=== PATIENT | male | born 1985 | race Caucasian/White ===

== ENCOUNTER 2025-02-05 07:36 | Emergency (ER) | payer SELFPAY ==
[2025-02-05] VITALS (7 sets, daily range): BP systolic 105–124; BP diastolic 54–72; PULSE 65–86; RESP 12–28; TEMP 36.9–37.1; O2SAT 97–100; BMI 12.1
--- NOTE | 2025-02-05 07:41 | CT_ITS ---
PROCEDURE: SPINE LUMBAR WITHOUT CONTRAST 02/05/2025 REASON FOR EXAM: TRAUMA TECHNIQUE: SPINE LUMBAR WITHOUT CONTRAST Coronal and Sagittal reconstruction series were provided. One or more dose reduction techniques were used (e.g., Automated exposure control, adjustment of the mA and/or kV according to patient size, use of iterative reconstruction technique. COMPARISON: Same day CT abdomen pelvis. RADIATION DOSE SUMMARY: DLP: 400 mGycm FINDINGS: Acute compression and burst type fracture of the L5 vertebral body. No obvious translational, rotational or distraction injury. There is disruption of the posterior ligamentous column given appearance of subtle widening of the interspinous space. There is retropulsion of the fracture fragment into the spinal canal, with approximately 40-50% narrowing of the spinal canal at the L4-5 disc space. There is minimal soft tissue stranding along the posterior lower back. No additional acute fracture or traumatic listhesis. The visualized sacral joints are maintained. See same day CT abdomen pelvis for additional findings. CT/Spine Lumbar without Contrast IMPRESSION: Acute compression and burst type fracture of the L5 vertebral body with retropu lsion as described. Recommend neurosurgical consultation and L-spine MRI to evaluate the spinal cord if clinically indicate d. Reading Location: [id number]
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
[2025-02-05] MEDS: Ondansetron 4 MG/2 ML Vial IV (07:47)
[2025-02-05] MEDS: morphine 8 MG/ML Syringe 6 MG IV ×2 (07:47→08:57)
[2025-02-05 07:59] LABS: Absolute Lymphocyte Count 1.53 X10^3/uL (0.83-4.51); Absolute Neutrophil Count 3.2 X10^3/uL (2.0-7.7); Basophil# 0.04 X10^3/uL; Basophil% 0.7 % (0-1); Eosinophil# 0.11 X10^3/uL; Hematocrit 43.9 % (40-54); Hemoglobin 15.6 g/dL (13.0-16.5); Lymphocyte # 1.53 X10^3/ul (0.83-4.51); Lymphocyte % 28.1 % (19-41); Mean Corp Hgb Conc 35.5 g/dL (32-36); Mean Corpuscular Hgb 29.4 pg (27.0-32.0); Mean Corpuscular Volume 82.7 fL (80-94); Mean Platelet Vol. 9.9 fl (6.2-12.0); Monocyte# 0.54 X10^3/uL; Monocyte% 9.9 % (0-10); NRBC Flagged by Analyzer 0 % (0-5); Neutrophil % 58.7 % (47-70); Platelet Count 234 K/mm3 (150-450); RBC Distribution Width CV 11.8 % (11.6-14.6); RBC Distribution Width SD 35.5 fl (35.1-43.9); Red Blood Count 5.31 M/mm3 (4.6-6.2); White Blood Count 5.5 K/mm3 (4.4-11.0)
--- NOTE | 2025-02-05 08:12 | PCA ---
CALLED [facility] AT [phone] FOR TRAUMA TRANSFER
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
--- NOTE | 2025-02-05 08:39 | ED.RN ---
2028: REPORT CALLED TO [facility] ER NURSE, ADRIANA, AT THIS TIME
[2025-02-05 08:41] LABS: ALB/GLOB Ratio 1.8 RATIO (0.9-2.4); AST(SGOT) 28 U/L (<=37); Alanine Aminotransfer ALT/SGPT 27 U/L (<=46); Albumin, Serum 4.4 g/dL (3.5-5.0); Alkaline Phosphatase 71 U/L (40-129); Anion Gap 13 (5-15); BUN 15 mg/dL (4-19); BUN/Creat Ratio 13.4 RATIO (10-20); Calcium,Total 9.3 mg/dL (7.6-11.0); Chloride 102 mmol/L (98-108); Creatinine, Serum 1.09 mg/dL (0.70-1.20); EST Glomerular Filtration Rate 89 (>60); Globulin 2.5 g/dL (2.2-4.2); Glucose 166 mg/dL (70-99); Potassium 3.5 mmol/L (3.3-5.1); Protein, Total 6.9 g/dL (5.9-8.4); Sodium Level 137 mmol/L (133-145); Total Bilirubin 0.99 mg/dL (0.00-1.30)
--- NOTE | 2025-02-05 09:22 | PCA ---
PHYSICIANS PICKED THE PATIENT AT [phone] FOR [facility]..... LEFT ABOUT 0930
[2025-02-05 14:57] LABS: International Normalized Ratio 1.1; Prothrombin Time (Protime)PT. 14.1 SECONDS (11.7-14.9)
== END 2025-02-05 09:30 | disposition short-term general hospital (02) ==
PROVIDERS: Emergency Provider Emergency Medicine; Visit Provider Emergency Medicine
DX: S32.051A Stable burst fracture of fifth lumbar vertebra, initial encounter for closed fracture (principal); W22.8XXA Striking against or struck by other objects, initial encounter; Y93.89 Activity, other specified; Y92.79 Other farm location as the place of occurrence of the external cause
CPT/HCPCS: 72131; 74177; 80053; 85025; 85610; 96374; 96375; 96376; 99285; Q9967; A4216; J2405

== ENCOUNTER → 2025-03-16 | Outpatient (CLI) | payer OTHER, SELFPAY ==
--- NOTE | 2025-03-16 13:53 | RAD_ITS ---
PROCEDURE: LUMBAR SPINE 2 OR 3 VIEWS 03/16/2025 REASON FOR EXAM: S/P LUMBAR FUSION TECHNIQUE: LUMBAR SPINE 2 OR 3 VIEWS COMPARISON: 02/05/2025 FINDINGS: Status post posterior fusion, L4 through S1. Intact hardware. Compression deformity L5. No significant degeneration. No acute bone or soft tissue pathology. RAD/Lumbar Spine 2 or 3 Views IMPRESSION: Unremarkable postoperative appearance. Reading [facility]
--- NOTE | 2025-03-16 13:53 | RAD_ITS ---
PROCEDURE: LUMBAR SPINE 2 OR 3 VIEWS 03/16/2025 REASON FOR EXAM: S/P LUMBAR FUSION TECHNIQUE: LUMBAR SPINE 2 OR 3 VIEWS COMPARISON: 02/05/2025 FINDINGS: Status post posterior fusion, L4 through S1. Intact hardware. Compression deformity L5. No significant degeneration. No acute bone or soft tissue pathology. RAD/Lumbar Spine 2 or 3 Views IMPRESSION: Unremarkable postoperative appearance. [facility]
== END | disposition home or self-care (01) ==
LOC: RAD 13:50
PROVIDERS: PCP Family Medicine
DX: Z98.1 Arthrodesis status (principal)
CPT/HCPCS: 72100

== ENCOUNTER → 2025-05-01 | Outpatient (CLI) | payer OTHER, SELFPAY ==
--- NOTE | 2025-05-01 09:38 | RAD_ITS ---
PROCEDURE: L/S SPINE MIN 4 VIEWS 05/01/2025 REASON FOR EXAM: SP LUMBAR FUSION TECHNIQUE: Procedure Code: RADSPLS Modality: DX Procedure: L/S SPINE MIN 4 VIEWS COMPARISON: 03/17/2025. FINDINGS: No evidence of acute fracture or dislocation. L4 through S1 posterior fusion. The intervertebral disc spaces of the non fused levels are maintained. RAD/L/S Spine Min 4 Views IMPRESSION: Intact lumbar fusion. Reading Location: [id number]
== END | disposition home or self-care (01) ==
PROVIDERS: PCP Family Medicine
DX: Z98.1 Arthrodesis status (principal)
CPT/HCPCS: 72110